=== PATIENT | male | born 1945 | race African-American/Black ===

== ENCOUNTER 2017-02-23 05:13 | Emergency (ER) | payer MEDICARE, OTHER ==
[~2017-02-23] VITALS: Ht 182.9 cm; Wt 109.0 kg
[2017-02-23] MEDS ORDERED: KETOROLAC 60MG/2ML VIAL IM ONE (06:45)
[2017-02-23 09:45] VITALS: BP 149/92
== END 2017-02-23 10:08 | disposition home or self-care (01) ==
LOC: ER 05:13
DX: M70.71 Other bursitis of hip, right hip (principal); M47.896 Other spondylosis, lumbar region; E11.9 Type 2 diabetes mellitus without complications; I10 Essential (primary) hypertension; Z87.891 Personal history of nicotine dependence
CPT/HCPCS: 72100; 73502; 96372; 99284; J1885

== ENCOUNTER 2022-07-21 09:10 | Emergency (ER) | payer MEDICARE, OTHER ==
[~2022-07-21] VITALS: Ht 182.9 cm; Wt 75.0 kg
[2022-07-21 09:11] VITALS: BP 148/91
[2022-07-21] MEDS ORDERED: FLUORESCEIN SODIUM 1MG/STRIP LEFTEYE ONE (10:30)
[2022-07-21] MEDS ORDERED: TETRACAINE 0.5% OPHTH DROPS 4ML LEFTEYE ONE (10:30)
[2022-07-21] MEDS ORDERED: OFLO5DRO3 LEFTEYE (13:04)
== END 2022-07-21 13:11 | disposition home or self-care (01) ==
LOC: ER 09:10
DX: H57.89 Other specified disorders of eye and adnexa (principal); E11.9 Type 2 diabetes mellitus without complications; I10 Essential (primary) hypertension; F12.10 Cannabis abuse, uncomplicated
CPT/HCPCS: 99284

== ENCOUNTER 2024-11-15 03:31 | Emergency (ER) | payer MEDICARE, OTHER ==
[~2024-11-15] VITALS: Ht 188 cm; Wt 100.4 kg
[~2024-11-15 03:31] MED LIST: OCUFLX LEFTEYE
[2024-11-15 03:35] VITALS: O2SAT 97
[2024-11-15] MEDS: IBUPROFEN 600MG TABLET PO ONE (03:55)
[2024-11-15] MEDS ORDERED: NAPR-1176 MT (04:28)
[2024-11-15] MEDS ORDERED: LIDO-53 TP (04:28)
[2024-11-15 04:53] VITALS: BP 101/64; PULSE 98; RESP 18; TEMP 36.8; O2SAT 98
== END 2024-11-15 04:55 | disposition home or self-care (01) ==
LOC: ER 04:47
DX: S90.31XA Contusion of right foot, initial encounter (principal); E11.9 Type 2 diabetes mellitus without complications; I10 Essential (primary) hypertension; Z79.1 Long term (current) use of non-steroidal anti-inflammatories (NSAID); F12.90 Cannabis use, unspecified, uncomplicated; Z79.899 Other long term (current) drug therapy; X58.XXXA Exposure to other specified factors, initial encounter; Y93.89 Activity, other specified; Y92.89 Other specified places as the place of occurrence of the external cause; Y99.8 Other external cause status
CPT/HCPCS: 73630; 99283; 99284

== ENCOUNTER 2024-11-23 08:50 | Emergency (ER) | payer MEDICARE, OTHER ==
[~2024-11-23] VITALS: Ht 188 cm; Wt 98.0 kg
[~2024-11-23 08:50] MED LIST changes: +LIDO-53 TP; +NAPR-1176 MT
[2024-11-23 08:56] VITALS: O2SAT 97
[2024-11-23 08:57] VITALS: BP 146/80; PULSE 90; RESP 18; TEMP 36.9; O2SAT 100
== END 2024-11-23 10:36 | disposition home or self-care (01) ==
LOC: ER 08:50
DX: M89.8X8 Other specified disorders of bone, other site (principal); E11.9 Type 2 diabetes mellitus without complications; I10 Essential (primary) hypertension; Z79.1 Long term (current) use of non-steroidal anti-inflammatories (NSAID); Z95.1 Presence of aortocoronary bypass graft; F12.90 Cannabis use, unspecified, uncomplicated
CPT/HCPCS: 99281; 99282

== ENCOUNTER 2025-01-05 14:12 | Emergency (ER) | payer OTHER, MEDICARE ==
[~2025-01-05] VITALS: Ht 180.3 cm; Wt 84.0 kg
[~2025-01-05 14:12] MED LIST changes: +ASPI-1497 PO; +CHOL400D7 PO; +LIP40 PO; +NIFE-33 PO; +TADA5TAB14 PO
[2025-01-05 14:14] VITALS: O2SAT 99
[2025-01-05] MEDS ORDERED: ACET-2708 MT (14:40)
[2025-01-05] MEDS ORDERED: LIDO-53 TP (14:40)
[2025-01-05] MEDS: GABAPENTIN 100MG CAPSULE PO ONE (14:58)
[2025-01-05] MEDS: LIDOCAINE 5% PATCH TOP SCH (14:58)
[2025-01-05 15:28] VITALS: BP 129/88; PULSE 84; RESP 15; TEMP 36.9; O2SAT 98
== END 2025-01-05 15:29 | disposition home or self-care (01) ==
LOC: ER 14:12
DX: M54.50 Low back pain, unspecified (principal); E11.22 Type 2 diabetes mellitus with diabetic chronic kidney disease; F10.90 Alcohol use, unspecified, uncomplicated; I10 Essential (primary) hypertension; Z79.1 Long term (current) use of non-steroidal anti-inflammatories (NSAID); Z79.82 Long term (current) use of aspirin; Z79.899 Other long term (current) drug therapy; Z88.8 Allergy status to other drugs, medicaments and biological substances; Y90.9 Presence of alcohol in blood, level not specified
CPT/HCPCS: 99283

== ENCOUNTER 2025-03-18 05:18 | Emergency (ER) | payer MEDICARE, OTHER ==
[~2025-03-18] VITALS: Ht 188 cm; Wt 97.0 kg
[~2025-03-18 05:18] MED LIST changes: +ACET-2708 MT
[2025-03-18 05:36] VITALS: O2SAT 98
[2025-03-18] MEDS: GABAPENTIN 300MG CAPSULE PO ONE (07:02)
[2025-03-18 07:04] VITALS: TEMP 36.5
[2025-03-18] MEDS: LIDOCAINE 5% PATCH TOP SCH (07:06)
[2025-03-18] MEDS ORDERED: LIDO-53 TP (09:18)
[2025-03-18] MEDS ORDERED: ACET-2708 MT (09:18)
[2025-03-18] MEDS ORDERED: GABA-1180 MT (09:18)
[2025-03-18 09:31] VITALS: BP 162/92; PULSE 70; RESP 15; O2SAT 99
== END 2025-03-18 09:32 | disposition home or self-care (01) ==
LOC: ER 05:18
DX: M54.50 Low back pain, unspecified (principal); E11.9 Type 2 diabetes mellitus without complications; I10 Essential (primary) hypertension; Z79.899 Other long term (current) drug therapy; Z79.82 Long term (current) use of aspirin; Z79.1 Long term (current) use of non-steroidal anti-inflammatories (NSAID)
CPT/HCPCS: 72100; 99283

== ENCOUNTER 2025-03-26 20:58 | Emergency (ER) | payer MEDICARE, OTHER ==
[~2025-03-26] VITALS: Ht 188 cm; Wt 98.0 kg
[~2025-03-26 20:58] MED LIST changes: +GABA-1180 MT
[2025-03-26 21:39] VITALS: TEMP 37.1; O2SAT 99
[2025-03-26 22:17] VITALS: BP 156/89; PULSE 84; RESP 16; O2SAT 99
== END 2025-03-26 22:18 | disposition home or self-care (01) ==
LOC: ER 20:58
DX: K08.89 Other specified disorders of teeth and supporting structures (principal); E11.9 Type 2 diabetes mellitus without complications; I10 Essential (primary) hypertension; Z79.1 Long term (current) use of non-steroidal anti-inflammatories (NSAID); Z79.82 Long term (current) use of aspirin; Z79.899 Other long term (current) drug therapy
CPT/HCPCS: 99282